=== PATIENT | male | born 1985 | race Caucasian/White ===

== ENCOUNTER 2019-11-13 07:20 | Emergency (ER) | payer OTHER ==
--- NOTE | 2019-11-13 07:43 | UC ---
UC General HPI - HPI Summary HPI Summary: 34 yo male with migratory joint pains x 2 weeks no joint swelling pain worse in AM no fever works out doors cutting and clearing trees Hx LD last year no HERNANDEZ no EM - History of Current Complaint Chief Complaint: UCGeneralIllness Stated Complaint: TICK BITE Time Seen by Provider: 11/13/19 07:41 Hx Obtained From: Patient Onset/Duration: Gradual Onset Onset Severity: Mild Current Severity: Moderate Pain Intensity: 7 Pain Location at: shoulders - Allergy/Home Medications Allergies/Adverse Reactions: Allergies Allergy/AdvReac Type Severity Reaction Status Date / Time terbinafine Allergy genoveva Verified 11/13/19 07:37 syndrome Home Medications: Home Medications DOXYcycline CAP(*) [DOXYcycline 100MG CAP(*)] 100 mg PO BID #28 cap 11/13/19 [Rx ] PMH/Surg Hx/FS Hx/Imm Hx Previously Healthy: Yes - Surgical History Surgical History: Yes Surgery Procedure, Year, and Place: right knee - Family History Known Family History: Positive: Hypertension, Other - no family history of auto immune dz - Social History Alcohol Use: None Substance Use Type: None Smoking Status (MU): Never Smoked Tobacco Review of Systems All Other Systems Reviewed And Are Negative: Yes Constitutional: Positive: Negative Skin: Positive: Negative Eyes: Positive: Negative ENT: Positive: Negative Respiratory: Positive: Negative Cardiovascular: Positive: Negative Gastrointestinal: Positive: Negative Genitourinary: Positive: Negative Motor: Positive: Negative Musculoskeletal: Positive: Arthralgia - shoulders Neurological/Mental Status: Positive: Negative Psychological: Positive: Negative Physical Exam Triage Information Reviewed: Yes Appearance: Well-Appearing, No Pain Distress, Well-Nourished Vital Signs: Initial Vital Signs Temp 98.4 F 11/13/19 07:31 Pulse 66 11/13/19 07:31 Resp 18 11/13/19 07:31 BP 127/77 11/13/19 07:31 Pulse Ox 100 11/13/19 07:31 Vital Signs Reviewed: Yes Eyes: Positive: Conjunctiva Clear ENT: Positive: Hearing grossly normal, Uvula midline. Negative: Nasal congestion, Nasal drainage, Tonsillar swelling, Tonsillar exudate, Muffled voice , Hoarse voice Dental Exam: Normal Neck: Positive: Supple, Nontender, No Lymphadenopathy Respiratory: Positive: Lungs clear, Normal breath sounds, No respiratory distress Cardiovascular: Positive: RRR, No Murmur Musculoskeletal: Positive: ROM Limited @ - painful ROM both shoulders, Other: - no red /swollen or hot joints Neurological: Positive: Alert Psychological Exam: Normal Skin Exam: Normal Course/Dx - Diagnoses Provider Diagnosis: Arthralgia Discharge ED - Sign-Out/Discharge Documenting (check all that apply): Patient Departure All imaging exams completed and their final reports reviewed: No Studies - Discharge Plan Condition: Stable Disposition: HOME Prescriptions: DOXYcycline CAP(*) [DOXYcycline 100MG CAP(*)] 100 mg PO BID #28 cap Patient Education Materials: Arthralgia (ED) Referrals: [facility] [place] [facility] [place]] - 2 Weeks Ton KATHLEEN,Wilberto Owens [Medical Doctor] - If Needed (call and make an appt if you lyme test is (+)) Additional Instructions: tylenol or aleve if needed blood work is pending - Billing Disposition and Condition Condition: STABLE Disposition: Home
[2019-11-13 10:25] LABS: ABS Eosinophils 0.1 10^3/ul (0-0.6); ABS Lymphocytes 1.3 10^3/ul (1.0-4.8); ABS Monocytes 0.3 10^3/ul (0-0.8); ABS Neutrophils 2.6 10^3/ul (1.5-7.7); Hematocrit 46 % (42-52); Hemoglobin 15.8 g/dL (14.0-18.0); Lymphocyte % 30.2 %; Mean Corpuscular HGB Conc 34 g/dL (31-36); Mean Corpuscular Hemoglobin 32 pg (27-31); Mean Corpuscular Volume 93 fL (80-94); Mean Platelet Volume 10.1 fL (7.4-10.4); Nucleated Red Blood Cells % 0.1; Platelet Count 181 10^3/uL (150-450); Red Blood Count 4.99 10^6 /uL (4.18-5.48); Red Cell Distribution Width 14 % (10-15); White Blood Count 4.4 10^3/uL (3.5-10.8)
[2019-11-13 11:47] LABS: Erythrocyte Sed Rate 0 mm/Hr (0-14)
--- NOTE | 2019-11-14 15:04 | UC ---
- Progress Note Progress Note: Lyme test negative. Recommend stop doxycycline, but he may complete this if he chooses - unlikely to provide any benefit as lyme negative. Recommend f/u with PCP for symptoms Course/Dx - Diagnoses Provider Diagnoses: Arthralgia Discharge ED - Sign-Out/Discharge Documenting (check all that apply): Post-Discharge Follow Up All imaging exams completed and their final reports reviewed: No Studies - Discharge Plan Condition: Stable Disposition: HOME Prescriptions: DOXYcycline CAP(*) [DOXYcycline 100MG CAP(*)] 100 mg PO BID #28 cap Patient Education Materials: Arthralgia (ED) Referrals: [facility] [place] [facility] [Outside] - 2 Weeks Ton KATHLEEN,Wilberto Owens [Medical Doctor] - If Needed (call and make an appt if you lyme test is (+)) Additional Instructions: tylenol or aleve if needed blood work is pending - Billing Disposition and Condition Condition: STABLE Disposition: Home
== END 2019-11-13 08:15 | disposition home or self-care (01) ==
LOC: UCEAST 07:20
DX: M25.512 Pain in left shoulder (principal); M25.511 Pain in right shoulder; Z88.3 Allergy status to other anti-infective agents
CPT/HCPCS: 36415; 85025; 85652; 86038; 86618; 99202; G0463